=== PATIENT | female | born 1955 | race Caucasian/White ===

== ENCOUNTER → 2017-02-15 | Outpatient (CLI) | payer BC ==
--- NOTE | 2017-02-16 13:55 | Diagnostic Imaging Report ---
Bilateral screening mammogram. The current study was also evaluated with a Computer Aided Detection (CAD) system. INDICATION: Screening. No current complaints stated on the questionnaire. COMPARISON: 02/24/2016. FINDINGS: The breasts are composed of heterogeneously dense parenchyma which may decrease mammographic sensitivity. Benign-appearing calcifications are seen. Allowing for technique and positional differences, no suspicious change is seen. IMPRESSION: No significant change. ACR BI-RADS Category 2: Benign findings. Result letter will be mailed to the patient. Note: At least 10% of breast cancer is not imaged by mammography. Dictated by: Dictated on workstation # [id number]
== END ==
LOC: RAD 07:14
PROVIDERS: ATTEND Obstetrics & Gynecology
DX: Z12.31 Encounter for screening mammogram for malignant neoplasm of breast (principal)
CPT/HCPCS: 77067

== ENCOUNTER 2017-11-29 09:51 | Outpatient (CLI) | payer BC ==
[~2017-11-29] VITALS: Ht 167.6 cm; Wt 86.2 kg
[2017-11-29] MEDS ORDERED: SERT25TA PO (11:36)
[2017-11-29] MEDS ORDERED: L.AC1CAP6 PO (11:36)
[2017-11-29] MEDS ORDERED: CETI10TA20 PO (11:36)
[2017-11-29] MEDS ORDERED: LEVO75TA PO (11:36)
[2017-11-29] MEDS ORDERED: ESTR1TAB24 PO (11:36)
== END 2017-11-29 11:41 ==
LOC: PREOP 09:51
PROVIDERS: ATTEND Surgery
DX: Z01.818 Encounter for other preprocedural examination (principal); Z12.11 Encounter for screening for malignant neoplasm of colon

== ENCOUNTER 2017-12-06 08:24 | Day surgery (SDC) | payer BC ==
[~2017-12-06] VITALS: Ht 167.6 cm; Wt 86.2 kg
[~2017-12-06 08:24] MED LIST: CETI10TA20 PO; ESTR1TAB24 PO; L.AC1CAP6 PO; LEVO75TA PO; SERT25TA PO
--- OUTSIDE RECORDS SUMMARY | 2017-12-06 08:28 | XMS REPORT | Continuity of Care Document ---
Author Author [facility] Organization [facility] Address Unknown Phone Unavailable Allergies Active Description Code Type Severity Reaction Onset Reported/Identified Relationship to Patient Clinical Status Yes codeine [id number] Drug Allergy Mild HIVES, GI UPSET 11/29/2017 Medications There is no data. Problems Date Dx Coded Attending Type Code Diagnosis Diagnosed By 02/19/2015 Ot V76.12 02/19/2015 Ot 611.89 02/19/2015 Ot V76.12 02/19/2015 Ot 733.90 02/19/2015 Ot V76.12 02/19/2015 Ot V76.12 02/19/2015 SILVANO ACOSTA MD Ot V76.12 03/18/2015 SILVANO ACOSTA MD Ot V76.12 02/24/2016 Ot 611.89 OTHER SPECIFIED DISORDERS OF BREAST 02/24/2016 Ot V76.12 OTH SCREEN MAMMO-MALIGN NEOPLASM OF FANNY 02/24/2016 Ot 733.90 BONE CARTILAGE DIS NOS 02/24/2016 Ot V76.12 OTH SCREEN MAMMO-MALIGN NEOPLASM OF FANNY 02/24/2016 Ot V76.12 OTH SCREEN MAMMO-MALIGN NEOPLASM OF FANNY 02/24/2016 SILVANO ACOSTA MD Ot V76.12 OTH SCREEN MAMMO-MALIGN NEOPLASM OF FANNY 02/24/2016 SILVANO ACOSTA MD Ot V76.12 OTH SCREEN MAMMO-MALIGN NEOPLASM OF FANNY 02/25/2016 SILVANO ACOSTA MD Ot Z12.31 ENCNTR SCREEN MAMMOGRAM FOR MALIGNANT NE 03/12/2016 SILVANO ACOSTA MD Ot Z12.31 ENCNTR SCREEN MAMMOGRAM FOR MALIGNANT NE 02/14/2017 Ot V76.12 OTH SCREEN MAMMO-MALIGN NEOPLASM OF FANNY 02/14/2017 Ot V76.12 OTH SCREEN MAMMO-MALIGN NEOPLASM OF FANNY 02/14/2017 SILVANO ACOSTA MD Ot V76.12 OTH SCREEN MAMMO-MALIGN NEOPLASM OF FANNY 02/14/2017 DAVE BOONE, SILVANO Torrez Ot V76.12 OTH SCREEN MAMMO-MALIGN NEOPLASM OF FANNY 02/14/2017 SILVANO ACOSTA MD, Ot Z12.31 ENCNTR SCREEN MAMMOGRAM FOR MALIGNANT NE 02/15/2017 Ot V76.12 OTH SCREEN MAMMO-MALIGN NEOPLASM OF FANNY 02/15/2017 Ot V76.12 OTH SCREEN MAMMO-MALIGN NEOPLASM OF FANNY 02/15/2017 SILVANO ACOSTA MD, Ot V76.12 OTH SCREEN MAMMO-MALIGN NEOPLASM OF FANNY 02/15/2017 SILVANO ACOSTA MD, Ot V76.12 OTH SCREEN MAMMO-MALIGN NEOPLASM OF FANNY 02/15/2017 SILVANO ACOSTA MD, Ot Z12.31 ENCNTR SCREEN MAMMOGRAM FOR MALIGNANT NE 03/02/2017 SILVANO ACOSTA MD, Ot Z12.31 ENCNTR SCREEN MAMMOGRAM FOR MALIGNANT NE 11/29/2017 REJI AGUILREA DO Ot Z01.818 ENCOUNTER FOR OTHER PREPROCEDURAL EXAMIN 11/29/2017 REJI AGUILERA DO Ot Z12.11 ENCOUNTER FOR SCREENING FOR MALIGNANT NE 11/30/2017 AGUILERA REJI MANNING Ot Z01.818 ENCOUNTER FOR OTHER PREPROCEDURAL EXAMIN 11/30/2017 REJI AGUILERA DO Ot Z12.11 ENCOUNTER FOR SCREENING FOR MALIGNANT NE 12/02/2017 Ot V76.12 OTH SCREEN MAMMO-MALIGN NEOPLASM OF FANNY 12/02/2017 SILVANO ACOSTA MD Ot V76.12 OTH SCREEN MAMMO-MALIGN NEOPLASM OF FANNY 12/02/2017 SILVANO ACOSTA MD, Ot V76.12 OTH SCREEN MAMMO-MALIGN NEOPLASM OF FANNY 12/02/2017 SILVANO CAOSTA MD, Ot Z12.31 ENCNTR SCREEN MAMMOGRAM FOR MALIGNANT NE 12/02/2017 SILVANO ACOSTA MD, Ot Z12.31 ENCNTR SCREEN MAMMOGRAM FOR MALIGNANT NE Procedures There is no data. Results There is no data. Encounters ACCT No. Visit Date/Time Discharge Status Pt. Type Provider Facility Loc./Unit Complaint [id number] 11/29/2017 09:51:00 11/29/2017 11:41:00 DIS Outpatient REJI AGUILERA DO [facility] PREOP COLONOSCOPY [id number] 02/15/2017 07:14:00 02/15/2017 23:59:59 CLS Outpatient SILVANO ACOSTA MD [facility] RAD Z12.31 ROUTINE SCREENING [id number] 02/24/2016 08:29:00 02/24/2016 23:59:59 CLS Outpatient SILVANO ACOSTA MD [facility] RAD SCREENING [id number] 02/19/2015 07:05:00 02/19/2015 23:59:59 CLS Outpatient SILVANO ACOSTA MD [facility] RAD SCREENING [id number] 02/07/2014 07:13:00 02/07/2014 23:59:59 CLS Outpatient SILVANO ACOSTA MD [facility] RAD SCREENING [id number] 12/06/2017 08:24:00 ACT Outpatient REJI AGUILERA DO [facility] ENDO SCREENING [id number] 01/15/2013 07:02:00 Document Registration [id number] 01/13/2012 07:04:00 Document Registration [id number] 01/26/2011 08:57:00 Document Registration [id number] 01/11/2011 08:22:00 Document Registration [id number] 01/08/2010 08:10:00 Document Registration
[2017-12-06] MEDS ORDERED: LACTATED RINGERS 1,000 ML IV STA (08:34)
[2017-12-06] MEDS ORDERED: PROPOFOL INJECTION 50 ML IV ONE (08:44)
[2017-12-06] MEDS ORDERED: MIDAZOLAM 2 MG/2 ML (VERSED) VIAL ONE (08:45)
[2017-12-06 08:47] VITALS: BP 123/82
--- NOTE | 2017-12-06 08:54 | Progress Note-Pre Operative ---
Pre-Operative Progress Note H&P Reviewed The H&P was reviewed, patient examined and no changes noted. Date Seen by Provider: Dec 06, 2017 Time Seen by Provider: 08:54 Date H&P Reviewed: Dec 06, 2017 Time H&P Reviewed: 08:54 Pre-Operative Diagnosis: screening colonoscopy REJI AGUILERA DO Dec 06, 2017 08:54
--- NOTE | 2017-12-06 09:50 | Anesthesia-General Post-Op ---
MAC Patient Condition Mental Status/LOC: Same as Preop Cardiovascular: Satisfactory Nausea/Vomiting: Absent Respiratory: Satisfactory Pain: Controlled Complications: Absent Post Op Complications Complications None Follow Up Care/Instructions Patient Instructions None needed. Anesthesiology Discharge Order Discharge Order Patient is doing well, no complaints, stable vital signs, no apparent adverse anesthesia problems. SEAN YANEZ DO Dec 06, 2017 09:50
--- NOTE | 2017-12-06 09:57 | Discharge Inst-Simple/Standard ---
Discharge Inst-Standard Patient Instructions/Follow Up Plan of Care/Instructions/FU: 2 weeks [place] Activity as Tolerated: Yes Discharge Diet: Regular Diet Other Inst to Patient Symptoms to Report: Appetite Changes, Extremity Discoloration, Numbness/Tingling, Swelling Increased , Bleeding Excessive, Eyesight Changes, Pain Increased, Urine Color Change, Constipation(Persistent), Fever over 101 degree F, Pain/Pressure in chest, Urinating Difficulty, Cough Up/Vomit Blood, Heart Beat Irreg/Pounding, Pain/ Pressure in jaw, Vaginal Bleeding Increase, Cramps in feet or legs, Lightheadedness, Pain/Pressure in shoulder, Diarrhea(Persistent), Memory Changes Suddenly, Questions/Concerns, Weight gain consecutive days, Dizziness/ Fainting, Nausea/Vomiting, Shortness of Breath, Weight gain over 2 pounds If questions or concerns contact your physician Or seek help at emergency department. REJI AGUILERA DO Dec 06, 2017 09:57
--- NOTE | 2017-12-06 09:58 | Progress Note-Post Operative ---
Post-Operative Progess Note Surgeon (s)/Cigarette Package Examiner (s) Surgeon REJI AGUILERA DO Cigarette Package Examiner: na Pre-Operative Diagnosis screening colonoscopy Post-Operative Diagnosis colon polyps Procedure & Operative Findings Date of Procedure 12/06/17 Procedure Performed/Findings colonoscopy with hot bx polypectomy x 5 Anesthesia Type per mda Estimated Blood Loss Estimated blood loss (mL): none Specimens/Packing Specimens Removed colon polyps REJI AGUILERA DO Dec 06, 2017 09:58
[2017-12-06 10:31] VITALS: BP 107/74
--- NOTE | 2017-12-06 14:41 | OPERATIVE REPORT ---
DATE OF SERVICE: 12/06/2017 PREOPERATIVE DIAGNOSIS: Screening colonoscopy. POSTOPERATIVE DIAGNOSIS: Colon polyps. PROCEDURE: Colonoscopy with hot biopsy polypectomy x3. SURGEON: Reji Raphael DO ANESTHESIA: Per MDA. ESTIMATED BLOOD LOSS: None. SPECIMENS: Cecal polyp not obtained. For specimen, ascending colon polyp, hepatic flexure polyp, descending colon polyp, rectal polyp. INDICATIONS: The patient is a 62-year-old female due for screening colonoscopy. She understands risks and benefits of procedure and wished to proceed with procedure. Consent was on chart. DESCRIPTION OF PROCEDURE: The patient was taken to the endoscopy suite, placed in the left lower recumbent position. Timeout was performed. Digital rectal exam was performed. There were no palpable polyps, mass or ulcerations. The scope was inserted in the rectum and advanced all the way to the cecum with minimal difficulty. Prep was adequate. Small polyp in the cecum was present. Hot biopsy polypectomy was performed. The specimen was unable to be obtained as loss of the channel. It was then able to be visualized. Scope was then continued slowly retracted back. There is a small polyp in the ascending colon, which hot biopsy polypectomy was performed. Specimen was obtained. The scope was continued slowly retracted back and the third polyp was in the hepatic flexure, which hot biopsy polypectomy was performed. Scope was continued to slowly retracted back. There were no polyps, mass or ulceration within the transverse colon. Within the descending colon was another small polyp, which hot biopsy polypectomy was performed. Scope was continuously retracted back through the sigmoid noting no other pathology. Scope was in the rectum and another small polyp was present, which hot biopsy polypectomy was performed. The rectum was narrow and unable to retroflex multiple insertions and retractions were made noting no other pathology. Scope was then slowly retracted and completely removed. The patient tolerated procedure well without complication. She was taken to recovery room in stable condition. RECOMMENDATIONS: The patient will need repeat colonoscopy in 5 years. She will follow up in 2 weeks to discuss all the pathology. If she has any problems prior to the 5 year trey, she should be reevaluated at that time. Job ID: [id number] DocumentID: [id number] Dictated Date: 12/06/2017 10:01:49 Transcription Specialist Date: 12/06/2017 14:40:27 Dictated By: REJI RAPHAEL DO
== END 2017-12-06 10:33 | disposition home or self-care (01) ==
LOC: ENDO 08:24
PROVIDERS: ATTEND Surgery
DX: Z12.11 Encounter for screening for malignant neoplasm of colon (principal); D12.3 Benign neoplasm of transverse colon; K63.5 Polyp of colon; K62.1 Rectal polyp; E07.9 Disorder of thyroid, unspecified; Z79.899 Other long term (current) drug therapy

== ENCOUNTER → 2018-02-21 | Outpatient (CLI) | payer BC ==
--- NOTE | 2018-02-21 18:48 | Diagnostic Imaging Report ---
INDICATION: Routine screening. Comparison is made with prior study from 02/15/2017 and 02/24/2016. The current study was also evaluated with a Computer Aided Detection (CAD) system. FINDINGS: Both breasts are heterogeneously dense, limiting the sensitivity of mammography. No spiculated mass or malignant-appearing microcalcifications are seen. Benign-appearing calcifications are noted bilaterally. The axillae are unremarkable. IMPRESSION: No mammographic features suspicious for malignancy are identified. ACR BI-RADS Category 2: Benign findings. Result letter will be mailed to the patient. Note: At least 10% of breast cancer is not imaged by mammography. Dictated by: Dictated on workstation # [id number]
== END ==
LOC: RAD 07:31
PROVIDERS: ATTEND Obstetrics & Gynecology
DX: Z12.31 Encounter for screening mammogram for malignant neoplasm of breast (principal)
CPT/HCPCS: 77067

== ENCOUNTER → 2018-06-23 | Outpatient (CLI) | payer BC ==
--- NOTE | 2018-06-23 08:57 | Diagnostic Imaging Report ---
PROCEDURE: MRI left joint lower extremity without contrast. TECHNIQUE: Multiplanar, multisequence non contrast-enhanced MRI of the left lower extremity was accomplished. INDICATION: Knee pain. There are no prior studies available for comparison. FINDINGS: On the proton dense sagittal series, there is abnormal signal throughout the medial meniscus. I do suspect that the medial meniscus is at least partially torn. The lateral meniscus appears to be intact. The posterior cruciate ligament near its attachment to the proximal tibia is indistinct. I suspect the PCL is partially torn. The anterior cruciate ligament is intact as are the quadriceps and infrapatellar tendons. There is no sign of a tear of the medial collateral ligament, the fibular collateral ligament, biceps femoris tendon or the iliotibial band. The medial and lateral retinaculum are intact. There is a small joint effusion present. There is also mild edema/inflammation along the anterior aspect of the infrapatellar tendon. On the STIR coronal series, there is slightly increased signal in the subarticular region of the medial aspect of the proximal tibia. I suspect that this is related to mild bone edema from degenerative disease. There is no abnormal signal arising from the osseous structures to suggest bone edema or fracture otherwise. There is moderate degenerative disease of the articular surface of the medial femoral condyle and to a lesser extent the lateral femoral condyle. The patellofemoral space does not seem to be significantly narrowed and there is no evidence for chondromalacia patella. IMPRESSION: 1. The medial meniscus is torn. There also appears to be a partial tear of the posterior cruciate ligament near its attachment to the proximal tibia. 2. The lateral meniscus and the other major ligaments and tendons are intact. 3. The small area of bone edema in the medial aspect of proximal tibia is probably related to degenerative disease alone. There is no acute bony abnormality noted. 4. There is a small joint effusion present and there is mild edema/inflammation along the anterior aspect of the infrapatellar tendon. Dictated by: Dictated on workstation # [id number]
== END ==
LOC: RAD 07:39
PROVIDERS: ATTEND Nurse Practitioner Family
DX: S83.242A Other tear of medial meniscus, current injury, left knee, initial encounter (principal); M17.12 Unilateral primary osteoarthritis, left knee; R60.0 Localized edema
CPT/HCPCS: 73721

== ENCOUNTER → 2019-03-07 | Outpatient (CLI) | payer BC ==
--- NOTE | 2019-03-07 11:25 | Diagnostic Imaging Report ---
INDICATION: Routine screening. COMPARISON: 02/21/2018 and 02/15/2017. TECHNIQUE: 2D and 3D bilateral screening mammography was performed with CAD. FINDINGS: Both breasts are heterogeneously dense, limiting the sensitivity of mammography. There are benign calcifications in both breasts. No mass or malignant appearing microcalcifications are seen. The axillae are unremarkable. IMPRESSION: No mammographic features suspicious for malignancy are identified. ACR BI-RADS Category 2: Benign findings. Result letter will be mailed to the patient. Note: At least 10% of breast cancer is not imaged by mammography. Dictated by: Dictated on workstation # [id number]
== END ==
LOC: RAD 07:19
PROVIDERS: ATTEND Obstetrics & Gynecology
DX: Z12.31 Encounter for screening mammogram for malignant neoplasm of breast (principal)
CPT/HCPCS: 77067

== ENCOUNTER → 2019-06-14 | Outpatient (CLI) | payer BC ==
--- NOTE | 2019-06-14 13:54 | Diagnostic Imaging Report ---
INDICATION: Left foot, foot pain 3 views are obtained. There are no prior studies available for comparison. There is no fracture, dislocation or acute bony abnormality identified. The Lisfranc joint is well maintained. The soft tissues are unremarkable. IMPRESSION: There is no evidence for an acute bony abnormality. Dictated by: Dictated on workstation # [id number]
== END ==
LOC: RAD 08:53
PROVIDERS: ATTEND Internal Medicine
DX: M79.672 Pain in left foot (principal)
CPT/HCPCS: 73630

== ENCOUNTER → 2019-09-04 | Outpatient (CLI) | payer BC ==
--- NOTE | 2019-09-04 09:53 | Diagnostic Imaging Report ---
INDICATION: 64-year-old postmenopausal female. COMPARISON: 01/26/2011 FINDINGS: AP Spine L1-L4: [BMD (g/cm2): 1.493] [T-Score: 2.4] [Z-Score: 3.1] [BMD Previous: 1.444] [BMD % Change: 3.4] LT Hip Neck: [BMD (g/cm2): 0.910] [T-Score: -0.9] [Z-Score: 0.0] LT Hip Total: [BMD (g/cm2):1.080] [T-Score:0.6] [Z-Score: 1.1] [BMD Previous: 1.038] [BMD % Change: 4.0] RT Hip Neck: [BMD (g/cm2):0.951] [T-Score:-0.6] [Z-Score:0.2] RT Hip Total: [BMD (g/cm2):1.038] [T-score:0.2] [Z-Score:0.8] [BMD Previous:1.046] [BMD % Change:-0.8] *Indicates significant change from prior examination based on 95% confidence level. World Health Organization criteria for BMD interpretation classify patients as Normal (T-score at or above -1.0), Osteopenic (T-score between -1.0 and -2.5) or Osteoporotic (T-score at or below -2.5). LIMITATIONS AND MODIFICATION: None. IMPRESSION: 1. Normal bone mineral density. 2. No significant change in bone mineral density since prior examination. 3. See below National Osteoporosis Foundation guidelines on when to potentially initiate pharmacologic therapy. Based on the National Osteoporosis Foundation Guidelines, pharmacologic treatment should be initiated in any of the following, unless clinical conditions suggest otherwise: * Any patient with prior fragility fracture of the hip or vertebrae. A spine fracture indicates 5X risk for subsequent spine fracture and 2X risk for subsequent hip fracture. * Osteoporosis (T-score <-2.5). * Postmenopausal women and men age 50 and older with low bone mass/osteopenia (T-score between -1.0 and -2.5) by DXA and 10-year major osteoporotic fracture greater than 20% or a 10-year probability of hip fracture greater than 3%. These fracture risks are supplied above in the FRAX score, if applicable. * Clinician judgement and/or patient preferences may indicate treatment for people with 10-year fracture probabilities above or below these levels. Dictated by: Dictated on workstation # [id number]
== END ==
LOC: RAD 08:54
PROVIDERS: ATTEND Internal Medicine
DX: M81.0 Age-related osteoporosis without current pathological fracture (principal); Z78.0 Asymptomatic menopausal state
CPT/HCPCS: 77080

== ENCOUNTER → 2020-03-13 | Outpatient (CLI) | payer BC ==
[~2020-03-13] MED LIST changes: -CETI10TA20 PO; +CETI10TA21 PO
--- NOTE | 2020-03-13 10:35 | Diagnostic Imaging Report ---
INDICATION: Routine screening. Comparison is made with prior mammogram 03/07/2019 and 02/21/2018. 2-D and 3-D bilateral screening mammography was performed with CAD. Both breasts are heterogeneously dense, limiting the sensitivity of mammography. Benign-appearing calcifications in both breasts appears stable. No new mass or malignant appearing microcalcifications are seen. Axillae are unremarkable. IMPRESSION: BI-RADS Category 2 No mammographic features suspicious for malignancy are identified. ACR BI-RADS Category 2: Benign findings. Result letter will be mailed to the patient. Note: At least 10% of breast cancer is not imaged by mammography. Dictated by: Dictated on workstation # [id number]
== END ==
LOC: RAD 07:32
PROVIDERS: ATTEND Obstetrics & Gynecology
DX: Z12.31 Encounter for screening mammogram for malignant neoplasm of breast (principal)
CPT/HCPCS: 77063; 77067

== ENCOUNTER → 2020-05-05 | Outpatient (CLI) | payer BC ==
--- NOTE | 2020-05-05 12:15 | Diagnostic Imaging Report ---
INDICATION: Cough. TIME OF EXAM: 12:15 PM. COMPARISON: No prior studies are available for comparison. FINDINGS: The heart size is normal. The pulmonary vascularity is unremarkable. The lungs are clear. No infiltrate, effusion, or pneumothorax is detected. IMPRESSION: No acute cardiopulmonary process is detected. Dictated by: Dictated on workstation # [id number]
== END ==
LOC: RAD 12:02
PROVIDERS: ATTEND Internal Medicine
DX: R05 Cough (principal)
CPT/HCPCS: 71046

== ENCOUNTER → 2021-05-13 | Outpatient (CLI) | payer BC ==
[~2021-05-13] MED LIST changes: -CETI10TA21 PO; +CETI10TA49 PO
--- NOTE | 2021-05-13 13:34 | Diagnostic Imaging Report ---
INDICATION: Routine screening. COMPARISON: 03/13/2020 and 03/07/2019. TECHNIQUE: 2D and 3D bilateral screening mammography was performed with CAD. FINDINGS: Both breasts are heterogeneously dense, limiting the sensitivity of mammography. Occasional benign calcifications are noted in both breasts. No mass or malignant-appearing microcalcifications are seen. The axillae are unremarkable. IMPRESSION: No mammographic features suspicious for malignancy are identified. ACR BI-RADS Category 2: Benign findings. Result letter will be mailed to the patient. Note: At least 10% of breast cancer is not imaged by mammography. Dictated by: Dictated on workstation # [id number]
== END ==
LOC: RAD 09:45
PROVIDERS: ATTEND Obstetrics & Gynecology
DX: Z12.31 Encounter for screening mammogram for malignant neoplasm of breast (principal)
CPT/HCPCS: 77063; 77067

== ENCOUNTER 2021-08-20 15:11 | Outpatient (RCR) | payer BC | END 2021-09-14 14:25 | disposition home or self-care (01) | PROVIDERS: ATTEND Internal Medicine | DX: R35.0 Frequency of micturition (principal); R39.15 Urgency of urination ==

== ENCOUNTER → 2022-05-26 | Outpatient (CLI) | payer BC ==
--- NOTE | 2022-05-26 09:34 | Diagnostic Imaging Report ---
INDICATION: Routine screening. COMPARISON: 05/13/2021 and 03/13/2020. TECHNIQUE: 2D and 3D bilateral screening mammography was performed with CAD. FINDINGS: Both breasts are heterogeneously dense, limiting the sensitivity of mammography. There is a density just below the nipple line on the right MLO view at anterior depth which appears more prominent than on the prior mammograms. This appears to be laterally located on the tomographic images but no definite correlate is seen on the CC view. This may represent a density just lateral to the nipple line. Additional views are recommended. The left breast is stable. There are benign calcifications present. The axillae are unremarkable. IMPRESSION: Right breast density. Additional views are recommended for further evaluation. ACR BI-RADS Category 0: Incomplete. (Needs additional imaging evaluation). Result letter will be mailed to the patient. Note: At least 10% of breast cancer is not imaged by mammography. Dictated by: Dictated on workstation # [id number]
== END ==
LOC: RAD 07:45
PROVIDERS: ATTEND Obstetrics & Gynecology
DX: Z12.31 Encounter for screening mammogram for malignant neoplasm of breast (principal); N64.89 Other specified disorders of breast
CPT/HCPCS: 77063; 77067

== ENCOUNTER → 2022-06-10 | Outpatient (CLI) | payer BC ==
--- NOTE | 2022-06-10 11:14 | Diagnostic Imaging Report ---
3-D Diagnostic right mammogram INDICATION: Abnormal screening mammogram The screening mammogram performed on 05/26/2022 noted a density just below the nipple line on the right MLO view at anterior depth. This did seem more prominent than on the 2020 study. There was no correlate identified on the craniocaudad view however. On this study, the area of concern is again evident. This finding is not as conspicuous on the compression view in the ML projection but there is still some residual density in this region. There is still no correlate seen on the craniocaudad view. This finding may be secondary to fibroglandular tissue alone. Even so, I would recommend that ultrasound be performed for further study. IMPRESSION: 1. Ultrasound of the right breast recommended for further study. ACR BI-RADS Category 0: Incomplete. (Needs additional imaging evaluation). Result letter will be mailed to the patient. Note: At least 10% of breast cancer is not imaged by mammography. Dictated by: Dictated on workstation # [id number]
--- NOTE | 2022-06-10 11:28 | Diagnostic Imaging Report ---
Right breast ultrasound, limited. INDICATION: Abnormal mammogram The screening mammogram performed on 05/26/2022 noted a small density in the retroareolar region of the right breast. This finding did not seem quite as conspicuous on the diagnostic mammogram performed prior to this exam. In the retroareolar region of the right breast, approximately 7-8 cm o'clock position, there is a 6 x 3 x 5 mm fairly well-circumscribed avascular anechoic lesion. I suspect this is a small benign cyst although it has a somewhat unusual contour and there is little through transmission. This may well correspond to the finding of the screening mammogram. There is no solid mass to suggest malignancy. Even so, it may prove worthwhile to have a short-term (6 month) follow-up mammogram and ultrasound exam for continued evaluation. IMPRESSION: The small density seen on the mammogram is most likely a benign cyst. Recommendations as above. ACR BI-RADS Category 3: Probably benign findings. Result letter will be mailed to the patient. Note: At least 10% of breast cancer is not imaged by mammography. Dictated by: Dictated on workstation # [id number]
== END ==
LOC: RAD 09:15
PROVIDERS: ATTEND Obstetrics & Gynecology
DX: N63.10 Unspecified lump in the right breast, unspecified quadrant (principal); R92.2 Inconclusive mammogram
CPT/HCPCS: 76642; 77065; G0279

== ENCOUNTER → 2022-12-01 | Outpatient (CLI) | payer MEDICARE, OTHER ==
--- NOTE | 2022-12-01 11:22 | Diagnostic Imaging Report ---
INDICATION: Six-month followup right breast density. COMPARISON: Correlation is made with the prior mammograms from 05/26/2022 and 05/13/2021. TECHNIQUE: Unilateral right 2D and 3D diagnostic mammography was performed. FINDINGS: The right breast remains heterogeneously dense. The density noted in the retroareolar slightly lower and outer aspect of the right breast appears less prominent on today's study. No new mass is detected. No malignant-appearing microcalcifications are seen. The right axilla is unremarkable. IMPRESSION: The previously noted right breast density does appear to be slightly less prominent on today's study. Further evaluation with ultrasound is recommended and will be performed today. ACR BI-RADS Category 0: Incomplete. (Needs additional imaging evaluation). Result letter will be mailed to the patient. Note: At least 10% of breast cancer is not imaged by mammography. Dictated by: Dictated on workstation # [id number]
--- NOTE | 2022-12-01 12:12 | Diagnostic Imaging Report ---
INDICATION: Six-month followup right breast nodule. COMPARISON: Correlation is made with the diagnostic mammogram from earlier this same day and prior right breast ultrasound from 06/10/2022. FINDINGS: There continues to be a hypoechoic nodule in the retroareolar right breast measuring 7 mm x 2 mm x 5 mm, similar to the prior study from 6 months earlier. This again shows somewhat angular margins. No internal vascularity is seen. No posterior acoustic shadowing is detected. IMPRESSION: Stable hypoechoic nodule in the retroareolar right breast with angular margins. After discussing the findings with the patient, the patient reported a recent diagnosis of breast cancer in her sister and her 35-year-old daughter. While stability of this lesion is reassuring, due to the strong family history, the patient elected to undergo ultrasound-guided breast biopsy. ACR BI-RADS Category 4: Suspicious abnormality. Dictated by: Dictated on workstation # [id number]
== END ==
LOC: RAD 08:50
PROVIDERS: ATTEND Internal Medicine
DX: N63.10 Unspecified lump in the right breast, unspecified quadrant (principal); Z80.3 Family history of malignant neoplasm of breast
CPT/HCPCS: 76642; 77065; G0279

== ENCOUNTER 2023-01-26 05:39 | Outpatient (CLI) | payer MEDICARE, OTHER ==
[~2023-01-26] VITALS: Ht 167.6 cm; Wt 86.2 kg
[2023-01-27] MEDS ORDERED: SERT-413 PO (10:33)
== END 2023-01-27 10:35 | disposition home or self-care (01) ==
LOC: PREOP 05:39
PROVIDERS: ATTEND Surgery
DX: Z01.818 Encounter for other preprocedural examination (principal)

== ENCOUNTER 2023-02-08 07:59 | Day surgery (SDC) | payer MEDICARE, OTHER ==
[~2023-02-08] VITALS: Ht 168 cm; Wt 86.2 kg
[~2023-02-08 07:59] MED LIST changes: +SERT-413 PO
[2023-02-08] MEDS ORDERED: LACTATED RINGERS 1,000 ML IV STA (08:02)
[2023-02-08 08:17] VITALS: BP 118/81
[2023-02-08] MEDS ORDERED: MIDAZOLAM 2 MG/2 ML (VERSED) VIAL ONE (09:30)
[2023-02-08] MEDS ORDERED: PROPOFOL INJECTION 50 ML IV ONE (09:30)
[2023-02-08 09:55] VITALS: BP 127/73
[2023-02-08 10:00] VITALS: BP 116/71
--- NOTE | 2023-02-08 10:00 | Discharge Inst-Simple/Standard ---
Discharge Inst-Standard Patient Instructions/Follow Up Plan of Care/Instructions/FU: F/u with seng in two week to discuss biopsy Activity as Tolerated: Yes Discharge Diet: Regular Diet REJI AGUILERA DO February 08, 2023 10:00
[2023-02-08 10:05] VITALS: BP 116/64
[2023-02-08 10:20] VITALS: BP 116/64
--- NOTE | 2023-02-08 14:22 | Anesthesia-General Post-Op ---
MAC Patient Condition Mental Status/LOC: Same as Preop Cardiovascular: Satisfactory Nausea/Vomiting: Absent Respiratory: Satisfactory Pain: Controlled Complications: Absent Post Op Complications Complications None Follow Up Care/Instructions Patient Instructions None needed. Anesthesiology Discharge Order Discharge Order Patient is doing well, no complaints, stable vital signs, no apparent adverse anesthesia problems. No complications reported per nursing. SHON LEONE CRNA February 08, 2023 14:22
--- NOTE | 2023-02-08 17:21 | OPERATIVE REPORT ---
DATE OF SERVICE: 02/08/2023 PREOPERATIVE DIAGNOSIS: History of polyps. POSTOPERATIVE DIAGNOSIS: Sigmoid colon polyp. PROCEDURE: Colonoscopy with hot biopsy polypectomy x1. SURGEON: Reji Raphale DO ANESTHESIA: Per DIRECTOR OF RESEARCH AND DEVELOPMENT. ESTIMATED BLOOD LOSS: None. COMPLICATIONS: None. INDICATIONS: The patient is a 67-year-old female, needing screening colonoscopy. She understands risks and benefits of procedure and wished to proceed. Consent was signed in chart. DESCRIPTION OF PROCEDURE: The patient was taken to the endoscopy suite, placed in left lateral recumbent position. Timeout was performed. Digital rectal exam was performed. No palpable polyps, masses or ulcerations. Scope was inserted in the rectum, advanced all the way to the cecum with minimal difficulty. Prep was adequate. Scope was then slowly retracted back. No polyps, masses or ulcerations in the cecum, ascending, transverse, descending colon. Sigmoid colon has small polyp, which hot biopsy polypectomy was performed. Scope was then continuously retracted back, noting no other pathology. Once in the rectum, scope was retroflexed noting no other pathology. Scope was returned to its normal position, slowly withdrawn until completely removed. The patient tolerated the procedure well without complications, taken to recovery room in stable condition. RECOMMENDATIONS: The patient will need repeat colonoscopy in 5 years. Any issues before that, be seen at that time. Job ID: [id number] DocumentID: [id number] Dictated Date: 02/08/2023 10:02:26 Hospit[employer]ship Date: 02/08/2023 17:18:00 Dictated By: REJI RAPHAEL DO
== END 2023-02-08 10:35 | disposition home or self-care (01) ==
LOC: ENDO 07:59
PROVIDERS: ATTEND Surgery
DX: Z12.11 Encounter for screening for malignant neoplasm of colon (principal); D12.5 Benign neoplasm of sigmoid colon; E66.9 Obesity, unspecified; Z68.30 Body mass index [BMI] 30.0-30.9, adult